=== PATIENT | male | born 1950 | race Caucasian/White ===

== ENCOUNTER 2021-01-17 12:59 | Outpatient (CLI) | payer MEDICARE ==
[2021-01-17 14:01] LABS: Hemoglobin 12.5 g/dL (13.5-17.5); Mean Corpuscular HGB CONC 32.7 g/dL (32.0-36.0); Mean Corpuscular Hemoglobin 28.4 pg (27.0-33.0); Mean Corpuscular Volume 86.8 fl (81.2-95.1); Mean Platelet Volume 10.6 fl (7.4-10.4); Platelet Count 214 10x3/uL (150-450); White Blood Cell (WBC) Count 9.8 10x3/uL (3.5-10.5)
[2021-01-17 14:25] LABS: PTT 24.9 sec (22.0-33.0); Prothrombin Time 10.7 sec (9.5-12.1)
[2021-01-17 14:29] LABS: Anion Gap 18 mmol/L (10-20); BUN (Urea Nitrogen) 46 mg/dL (8.4-25.7); Calc. Creatinine Clearance 0 mL/min (70-130); Calcium 9.6 mg/dL (7.8-10.44); Carbon Dioxide 22 mmol/L (23-31); Chloride 103 mmol/L (98-107); Glucose 115 mg/dL (80-115); Potassium 4.3 mmol/L (3.5-5.1); Sodium 139 mmol/L (136-145)
[2021-01-18 01:20] LABS: SARS-CoV-2 PCR by NAA Not Detected (NotDetected)
== END 2021-01-17 13:00 | disposition home or self-care (01) ==
LOC: LABBT 12:59
PROVIDERS: ATTEND Otolaryngology
DX: Z01.812 Encounter for preprocedural laboratory examination (principal); G95.9 Disease of spinal cord, unspecified; M48.02 Spinal stenosis, cervical region; Z20.822 Contact with and (suspected) exposure to COVID-19
CPT/HCPCS: 80048; 85027; 85610; 85730; U0003; U0005; 87635

== ENCOUNTER 2021-01-20 05:40 | Day surgery (SDC) | payer MEDICARE ==
[2021-01-19 15:35] VITALS: BMI 28.0
[2021-01-20] MEDS ORDERED: Thrombin 5000 UNITS/5 ML VIAL ONE (06:11)
[2021-01-20] MEDS ORDERED: Fentanyl 100 MCG/2 ML VIAL ONE ×4 (06:49→12:23)
[2021-01-20] MEDS ORDERED: HYDROmorphone 0.5 MG/0.5 ML SYRINGE ONE (06:50)
[2021-01-20] MEDS ORDERED: Dexmedetomidine 200 MCG/2 ML VIAL ONE (06:50)
[2021-01-20] MEDS ORDERED: PHENYLEPHRINE-NS 100 MCG/ML 10 ML SYRINGE ONE (07:03)
[2021-01-20] MEDS ORDERED: Glycopyrrolate 0.2 MG/ML 5 ML SYRINGE ONE (07:03)
[2021-01-20] MEDS ORDERED: Ketorolac Tromethamine 30 MG/ML VIAL ONE (07:03)
[2021-01-20] MEDS ORDERED: Ondansetron PF 4 MG/2 ML Vial ONE (07:03)
[2021-01-20] MEDS ORDERED: Lidocaine 1% PF 5 ML VIAL ONE (07:03)
[2021-01-20] MEDS ORDERED: Rocuronium Bromide 10 MG/ML (10ML VIAL) ONE (07:03)
[2021-01-20] MEDS ORDERED: ePHEDrine Sulfate 50 MG/10 ML VIAL ONE (07:03)
[2021-01-20] MEDS ORDERED: PROPOFOL 200 MG/20 ML VIAL ONE (07:03)
[2021-01-20] MEDS ORDERED: Mineral Oil Sterile 10ML 10 ML UDCUP ONE (08:24)
[2021-01-20] MEDS ORDERED: Tamsulosin HCl 0.4 MG CAP ONE (11:17)
[2021-01-20] MEDS ORDERED: tiZANidine HCl 4 MG TAB ONE (11:49)
== END 2021-01-20 14:32 | disposition home or self-care (01) ==
LOC: SDC 05:40
PROVIDERS: ATTEND Neurological Surgery
PROC: 0RG1071 Fusion of Cervical Vertebral Joint with Autologous Tissue Substitute, Posterior Approach, Posterior Column, Open Approach (ICD-10-PCS; principal; 2021-01-20)
DX: M50.01 Cervical disc disorder with myelopathy, high cervical region (principal); M48.02 Spinal stenosis, cervical region; I10 Essential (primary) hypertension; I25.10 Atherosclerotic heart disease of native coronary artery without angina pectoris; E78.5 Hyperlipidemia, unspecified; I25.2 Old myocardial infarction; Z87.891 Personal history of nicotine dependence; Z95.5 Presence of coronary angioplasty implant and graft; E11.9 Type 2 diabetes mellitus without complications; M10.9 Gout, unspecified; Z79.02 Long term (current) use of antithrombotics/antiplatelets; Z79.82 Long term (current) use of aspirin; Z79.84 Long term (current) use of oral hypoglycemic drugs; Z79.899 Other long term (current) drug therapy
CPT/HCPCS: 20930; 20936; 22551; 22552; 22845; 22853 ×2; 76000; C1713 ×3; C1776 ×2; J0690; J1170; J1885; J2405; J2704; J3010; J3490

== ENCOUNTER 2021-02-22 16:58 | Outpatient (CLI) | payer MEDICARE | END 2021-02-22 16:59 | disposition home or self-care (01) | LOC: CT 16:58 | PROVIDERS: ATTEND Thoracic Surgery (Cardiothoracic Vascular Surgery) | DX: I65.22 Occlusion and stenosis of left carotid artery (principal); K04.7 Periapical abscess without sinus; M47.812 Spondylosis without myelopathy or radiculopathy, cervical region; Z98.890 Other specified postprocedural states | CPT/HCPCS: 70490; 82565 ==

== ENCOUNTER 2021-02-28 05:46 | Inpatient (IN) | payer MEDICARE ==
[2021-02-27 12:04] VITALS: BMI 28.0
[2021-02-28] MEDS ORDERED: Midazolam HCl 2 mg/2 ml Vial ONE (06:27)
[2021-02-28] MEDS ORDERED: Fentanyl 100 MCG/2 ML VIAL ONE ×2 (06:27→09:10)
[2021-02-28] MEDS ORDERED: Bupivacaine PF 0.5% 30 ML VIAL ONE (06:35)
[2021-02-28] MEDS ORDERED: EPINEPHrine 1 MG/ML AMP ONE (06:35)
[2021-02-28] MEDS ORDERED: Heparin 5,000 UNITS/ML VIAL ONE (06:35)
[2021-02-28] MEDS ORDERED: Protamine Sulfate 50 MG/5 ML VIAL ONE (06:35)
[2021-02-28] MEDS ORDERED: Dexamethasone 4 mg/ml Vial ONE (06:35)
[2021-02-28 06:56] LABS: Hemoglobin 12.1 g/dL (14.0-18.0); Mean Corpuscular HGB CONC 33.6 g/dL (32.0-36.0); Mean Corpuscular Hemoglobin 28.8 pg (27.0-31.0); Mean Corpuscular Volume 85.9 fL (78.0-98.0); Mean Platelet Volume 8.4 fL (7.4-10.4); Platelet Count 148 thou/uL (130-400); RBC Distribution Width 13.5 % (11.5-14.5); Red Blood Cell (RBC) Count 4.21 mill/uL (4.70-6.10); White Blood Cell (WBC) Count 7.5 thou/uL (4.8-10.8)
[2021-02-28] MEDS ORDERED: Ketorolac Tromethamine 30 MG/ML VIAL ONE (07:23)
[2021-02-28] MEDS ORDERED: Glycopyrrolate 0.2 MG/ML 5 ML SYRINGE ONE (07:23)
[2021-02-28] MEDS ORDERED: Rocuronium Bromide 10 MG/ML (10ML VIAL) ONE (07:23)
[2021-02-28] MEDS ORDERED: Lidocaine 1% PF 5 ML VIAL ONE (07:23)
[2021-02-28] MEDS ORDERED: PHENYLEPHRINE-NS 100 MCG/ML 10 ML SYRINGE ONE (07:23)
[2021-02-28] MEDS ORDERED: Ondansetron PF 4 MG/2 ML Vial ONE (07:23)
[2021-02-28] MEDS ORDERED: PROPOFOL 200 MG/20 ML VIAL ONE (07:23)
[2021-02-28] MEDS ORDERED: Dexamethasone 20 MG/5 ML VIAL ONE (07:23)
[2021-02-28 07:32] LABS: Anion Gap 13 mmol/L (10-20); BUN (Urea Nitrogen) 55 mg/dL (8.4-25.7); Calc. Creatinine Clearance 36 mL/min (70-130); Calcium 9.8 mg/dL (7.8-10.44); Carbon Dioxide 25 mmol/L (23-31); Chloride 107 mmol/L (98-107); Glucose 120 mg/dL (80-115); Sodium 141 mmol/L (136-145)
[2021-02-28] MEDS ORDERED: Ondansetron HCl/PF 4 MG/2 ML Vial IVP PRN (08:59)
[2021-02-28 11:15] VITALS: BP 126/62
[2021-02-28] MEDS ORDERED: OLMESARTAN PO SCH (12:10)
[2021-02-28] MEDS ORDERED: Metoprolol Tartrate 100 MG TAB PO SCH (12:10)
[2021-02-28] MEDS ORDERED: Ondansetron PF 4 MG/2 ML Vial IVP PRN (12:10)
[2021-02-28] MEDS ORDERED: Fentanyl 100 MCG/2 ML VIAL SLOW IVP PRN (12:10)
[2021-02-28] MEDS ORDERED: Insulin Regular 300 UNITS/3 ML VIAL SC PRN (12:10)
[2021-02-28] MEDS ORDERED: HCTHIAZID PO SCH (12:10)
[2021-02-28] MEDS ORDERED: [UNRECOGNIZED DRUG - OTHER] PO SCH (12:10)
[2021-02-28] MEDS ORDERED: Promethazine HCl 25 MG/ML VIAL IM PRN (12:10)
[2021-02-28] MEDS ORDERED: AMLODIPIN PO SCH (12:10)
[2021-02-28] MEDS ORDERED: hydrALAZINE 20 MG/ML VIAL SLOW IVP PRN (12:10)
[2021-02-28] MEDS ORDERED: Acetaminophen 325 MG TAB PO PRN (12:10)
[2021-02-28] MEDS ORDERED: Nitroglycerin 50 MG/250 ML BOT 250 ML IVPB PRN (12:10)
[2021-02-28] MEDS ORDERED: Phenylephrine 40 MG/NS 250 ML 250 ML IVPB PRN (12:36)
[2021-02-28] MEDS: Sodium Chloride 0.9% 1,000 ML IV SCH ×2 (12:41→23:22)
[2021-02-28] MEDS ORDERED: HYDROcodone/Acetaminophen 10/325 mg Tablet PO SCH (15:00)
[2021-02-28] MEDS: CEFAZOLIN 2 GM in Premix Bag 1 BAG IVPB SCH ×2 (15:06→23:21)
[2021-02-28] MEDS: HYDROcodone/Acetaminophen 10/325 mg Tablet PO PRN ×2 (20:33→23:22)
[2021-03-01 07:44] VITALS: TEMP 97.9
[2021-03-01] MEDS: CEFAZOLIN 2 GM in Premix Bag 1 BAG IVPB SCH (07:53)
[2021-03-01] MEDS ORDERED: Losartan 25 MG TAB PO SCH (09:00)
[2021-03-01] MEDS ORDERED: Amlodipine 10 MG TAB PO SCH (09:00)
[2021-03-01] MEDS ORDERED: Furosemide 20 MG TAB PO SCH (09:00)
[2021-03-01] MEDS ORDERED: Fenofibrate Nanocrystallized 145 MG TAB PO SCH (09:00)
[2021-03-01] MEDS ORDERED: Rosuvastatin 20 MG TAB PO SCH (09:00)
[2021-03-01] MEDS ORDERED: Clopidogrel Bisulfate 75 MG TAB PO SCH (09:00)
[2021-03-01] MEDS ORDERED: Hydrochlorothiazide 25 MG TAB PO SCH (09:00)
[2021-03-01] MEDS ORDERED: glipiZIDE 10 MG TAB PO SCH (09:00)
== END 2021-03-01 08:30 | disposition home or self-care (01) | DRG 39 ==
LOC: SURG A 05:46 → CCU 10:29
PROVIDERS: ADMIT Thoracic Surgery (Cardiothoracic Vascular Surgery); ATTEND Thoracic Surgery (Cardiothoracic Vascular Surgery)
PROC: 03CJ0ZZ Extirpation of Matter from Left Common Carotid Artery, Open Approach (ICD-10-PCS; principal; 2021-02-28)
PROC: 03CL0ZZ Extirpation of Matter from Left Internal Carotid Artery, Open Approach (ICD-10-PCS; 2021-02-28)
PROC: 03UJ0KZ Supplement Left Common Carotid Artery with Nonautologous Tissue Substitute, Open Approach (ICD-10-PCS; 2021-02-28)
PROC: 03UL0KZ Supplement Left Internal Carotid Artery with Nonautologous Tissue Substitute, Open Approach (ICD-10-PCS; 2021-02-28)
DX: I65.22 Occlusion and stenosis of left carotid artery (principal); I10 Essential (primary) hypertension; E78.5 Hyperlipidemia, unspecified; M19.90 Unspecified osteoarthritis, unspecified site; E11.9 Type 2 diabetes mellitus without complications; E78.2 Mixed hyperlipidemia; I25.10 Atherosclerotic heart disease of native coronary artery without angina pectoris; Z79.899 Other long term (current) drug therapy; Z79.02 Long term (current) use of antithrombotics/antiplatelets; Z79.84 Long term (current) use of oral hypoglycemic drugs; Z98.1 Arthrodesis status; Z95.5 Presence of coronary angioplasty implant and graft; I25.2 Old myocardial infarction; Z83.3 Family history of diabetes mellitus; Z82.3 Family history of stroke; Z82.49 Family history of ischemic heart disease and other diseases of the circulatory system; Z87.891 Personal history of nicotine dependence
CPT/HCPCS: 36416; 80048; 85027; 94640; J0171; J0690; J1100; J1642; J1644; J1815; J1885; J2250; J2405; J2704; J2720; J3010; J7620; S0020

== ENCOUNTER 2022-09-13 13:50 | Outpatient (CLI) | payer MEDICARE ==
[2022-09-13 14:43] LABS: Hemoglobin 11.5 g/dL (13.5-17.5); Mean Corpuscular HGB CONC 32.4 g/dL (32.0-36.0); Mean Corpuscular Hemoglobin 27.2 pg (27.0-33.0); Mean Corpuscular Volume 83.9 fl (81.2-95.1); Mean Platelet Volume 10.9 fl (7.4-10.4); Platelet Count 182 10x3/uL (150-450); RBC Distribution Width 15.2 % (11.5-14.5); Red Blood Cell (RBC) Count 4.23 10x6/uL (4.32-5.72); White Blood Cell (WBC) Count 7.9 10x3/uL (3.5-10.5)
[2022-09-13 15:01] LABS: PTT 24.5 sec (22.0-33.0); Prothrombin Time 10.8 sec (9.5-12.1)
[2022-09-13 15:05] LABS: Anion Gap 18 mmol/L (10-20); BUN (Urea Nitrogen) 64 mg/dL (8.4-25.7); Calc. Creatinine Clearance 0 mL/min (70-130); Carbon Dioxide 24 mmol/L (23-31); Chloride 105 mmol/L (98-107); Estimated GFR 23; Glucose 257 mg/dL (80-115); Potassium 4.7 mmol/L (3.5-5.1); Sodium 142 mmol/L (136-145)
== END 2022-09-13 13:51 | disposition home or self-care (01) ==
LOC: LABBT 13:50
PROVIDERS: ATTEND Neurological Surgery
DX: Z01.812 Encounter for preprocedural laboratory examination (principal); M43.16 Spondylolisthesis, lumbar region; M48.07 Spinal stenosis, lumbosacral region; M48.57XA Collapsed vertebra, not elsewhere classified, lumbosacral region, initial encounter for fracture
CPT/HCPCS: 80048; 85027; 85610; 85730

== ENCOUNTER 2022-10-24 15:02 | Outpatient (CLI) | payer OTHER ==
[2022-10-24 16:56] LABS: Hemoglobin 13.1 g/dL (13.5-17.5); Mean Corpuscular HGB CONC 32.9 g/dL (32.0-36.0); Mean Corpuscular Hemoglobin 27.8 pg (27.0-33.0); Mean Corpuscular Volume 84.3 fl (81.2-95.1); Mean Platelet Volume 11.2 fl (7.4-10.4); Platelet Count 204 10x3/uL (150-450); RBC Distribution Width 15.4 % (11.5-14.5); Red Blood Cell (RBC) Count 4.72 10x6/uL (4.32-5.72); White Blood Cell (WBC) Count 7.1 10x3/uL (3.5-10.5)
[2022-10-24 17:13] LABS: PTT 24.5 sec (22.0-33.0); Prothrombin Time 10.9 sec (9.5-12.1)
[2022-10-24 17:19] LABS: Anion Gap 17 mmol/L (10-20); BUN (Urea Nitrogen) 76 mg/dL (8.4-25.7); Calc. Creatinine Clearance 0 mL/min (70-130); Calcium 9.6 mg/dL (7.8-10.44); Carbon Dioxide 26 mmol/L (23-31); Chloride 103 mmol/L (98-107); Estimated GFR 22; Glucose 175 mg/dL (80-115); Potassium 4.7 mmol/L (3.5-5.1); Sodium 141 mmol/L (136-145)
== END 2022-10-24 15:03 | disposition home or self-care (01) ==
LOC: LABBT 15:02
PROVIDERS: ATTEND Neurological Surgery
DX: Z01.818 Encounter for other preprocedural examination (principal); M48.061 Spinal stenosis, lumbar region without neurogenic claudication
CPT/HCPCS: 80048; 85027; 85610; 85730; 93005; 93010

== ENCOUNTER 2022-10-29 05:42 | Observation (INO) | payer OTHER ==
[2022-10-26 10:58] VITALS: BMI 28.0
[2022-10-29] MEDS ORDERED: Vancomycin 1 GM VIAL ONE (06:09)
[2022-10-29] MEDS ORDERED: Bupivacaine HCl 0.5%/Epinephrine 1:200,000/PF 30 ml Vial ONE (06:09)
[2022-10-29] MEDS ORDERED: Neomycin-Polymyxin 1 ML AMP ONE ×2 (06:09→09:37)
[2022-10-29] MEDS ORDERED: Thrombin 5000 UNITS/5 ML VIAL ONE (06:09)
[2022-10-29] MEDS ORDERED: diphenhydrAMINE 50 MG/ML VIAL IVP PRN (06:33)
[2022-10-29] MEDS ORDERED: Milk Of Magnesia 30 ML UDCUP PO PRN (06:33)
[2022-10-29] MEDS ORDERED: Mag-Al 1200 mg/1200 mg/30 ML UDCUP PO PRN (06:33)
[2022-10-29] MEDS ORDERED: Bisacodyl 10 MG SUPP PR PRN (06:33)
[2022-10-29] MEDS ORDERED: Acetaminophen 325 MG TAB PO PRN (06:33)
[2022-10-29] MEDS ORDERED: Morphine 2 MG/ML VIAL SLOW IVP PRN (06:33)
[2022-10-29] MEDS ORDERED: Acetaminophen/Codeine 30-300mg Tablet PO PRN (06:33)
[2022-10-29] MEDS ORDERED: HYDROcodone/Acetaminophen 7.5/325 mg Tablet PO PRN (06:33)
[2022-10-29] MEDS ORDERED: Ondansetron PF 4 MG/2 ML Vial IVP PRN (06:33)
[2022-10-29] MEDS ORDERED: Promethazine HCl 25 MG/ML VIAL IM PRN (06:33)
[2022-10-29] MEDS ORDERED: CEFAZOLIN 2 GM VIAL ONE ×3 (06:55→23:02)
[2022-10-29] MEDS ORDERED: Sodium Chloride 0.9% 100 ML ONE ×2 (06:55→23:02)
[2022-10-29] MEDS ORDERED: Dexamethasone 20 MG/5 ML VIAL ONE (07:08)
[2022-10-29] MEDS ORDERED: PROPOFOL 200 MG/20 ML VIAL ONE (07:08)
[2022-10-29] MEDS ORDERED: Esmolol 100 MG/10 ML VIAL ONE (07:08)
[2022-10-29] MEDS ORDERED: Ondansetron PF 4 MG/2 ML Vial ONE (07:08)
[2022-10-29] MEDS ORDERED: ePHEDrine 50 MG/ML VIAL ONE (07:08)
[2022-10-29] MEDS ORDERED: Lidocaine 1% PF 5 ML VIAL ONE (07:08)
[2022-10-29] MEDS ORDERED: NEOSTIGMINE 3 MG/3 ML SYR 3 MG/3 ML SYRINGE ONE (07:08)
[2022-10-29] MEDS ORDERED: Rocuronium Bromide 10 MG/ML (10ML VIAL) ONE (07:08)
[2022-10-29] MEDS ORDERED: Glycopyrrolate 0.2 MG/ML 5 ML SYRINGE ONE (07:08)
[2022-10-29] MEDS ORDERED: HYDROmorphone 2 MG/ML VIAL ONE (07:20)
[2022-10-29] MEDS ORDERED: ePHEDrine Sulfate 50 MG/10 ML VIAL ONE (07:20)
[2022-10-29] MEDS ORDERED: Propofol 500 MG/50 ML VIAL ONE (07:48)
[2022-10-29] MEDS ORDERED: Meperidine HCl/PF 25 MG/ML VIAL SLOW IVP PRN (12:24)
[2022-10-29] MEDS ORDERED: HYDROmorphone 2 MG/ML VIAL SLOW IVP PRN (12:24)
[2022-10-29] MEDS ORDERED: Ondansetron HCl/PF 4 MG/2 ML Vial IVP PRN (12:24)
[2022-10-29] MEDS ORDERED: fentaNYL PF 100 MCG/2 ML SYRINGE ONE (13:25)
[2022-10-29] MEDS ORDERED: CEFAZOLIN 2 GM in Sodium Chloride 0.9% 100 ML IVPB SCH (14:00)
[2022-10-29] MEDS ORDERED: Fentanyl 100 MCG/2 ML VIAL ONE ×2 (14:33→20:13)
[2022-10-29] MEDS: CEFAZOLIN 2 GM in Sodium Chloride 0.9% 100 ML IVPB SCH (15:46)
[2022-10-29] MEDS ORDERED: HYDROmorphone 0.5 MG/0.5 ML SYRINGE ONE ×2 (16:23→17:20)
[2022-10-29] MEDS ORDERED: HYDROcodone/Acetaminophen 10/325 mg Tablet ONE (19:15)
[2022-10-29] MEDS ORDERED: tiZANidine HCl 4 MG TAB ONE (19:16)
[2022-10-29] MEDS ORDERED: Tamsulosin HCl 0.4 MG CAP ONE (19:17)
[2022-10-30] MEDS: Aspirin 81 mg Enteric Coated Tablet PO SCH ×2 (00:29→09:21)
[2022-10-30] MEDS: Sodium Chloride 0.9% 1,000 ML IV SCH ×3 (00:30→09:33)
[2022-10-30] MEDS: CEFAZOLIN 2 GM in Sodium Chloride 0.9% 100 ML IVPB SCH ×2 (00:32→09:20)
[2022-10-30] MEDS ORDERED: tiZANidine HCl 4 MG TAB ONE ×2 (01:16→07:12)
[2022-10-30] MEDS ORDERED: HYDROcodone/Acetaminophen 10/325 mg Tablet ONE ×2 (01:22→07:12)
[2022-10-30] MEDS: HYDROcodone/Acetaminophen 10/325 mg Tablet PO PRN ×2 (01:30→07:15)
[2022-10-30] MEDS: tiZANidine HCl 4 MG TAB PO PRN ×2 (01:32→07:16)
[2022-10-30] MEDS ORDERED: Tamsulosin HCl 0.4 MG CAP ONE (05:10)
[2022-10-30] MEDS ORDERED: Tamsulosin HCl 0.4 MG CAP PO SCH (06:00)
[2022-10-30] MEDS ORDERED: Sodium Chloride 0.9% 100 ML ONE (08:47)
[2022-10-30] MEDS ORDERED: CEFAZOLIN 2 GM VIAL ONE (08:47)
[2022-10-30 11:17] VITALS: BP 104/51; TEMP 97.7
== END 2022-10-30 11:30 | disposition home or self-care (01) ==
LOC: SDC 05:42 → PACU-TCU 06:38
PROVIDERS: ADMIT Neurological Surgery; ATTEND Neurological Surgery
PROC: 01NB0ZZ Release Lumbar Nerve, Open Approach (ICD-10-PCS; principal; 2022-10-29)
PROC: 0SG00AJ Fusion of Lumbar Vertebral Joint with Interbody Fusion Device, Posterior Approach, Anterior Column, Open Approach (ICD-10-PCS; 2022-10-29)
PROC: 0SG30AJ Fusion of Lumbosacral Joint with Interbody Fusion Device, Posterior Approach, Anterior Column, Open Approach (ICD-10-PCS; 2022-10-29)
DX: M48.062 Spinal stenosis, lumbar region with neurogenic claudication (principal); M43.16 Spondylolisthesis, lumbar region; M48.57XA Collapsed vertebra, not elsewhere classified, lumbosacral region, initial encounter for fracture; M19.90 Unspecified osteoarthritis, unspecified site; E78.00 Pure hypercholesterolemia, unspecified; E11.9 Type 2 diabetes mellitus without complications; I11.9 Hypertensive heart disease without heart failure; Z86.73 Personal history of transient ischemic attack (TIA), and cerebral infarction without residual deficits; Z87.891 Personal history of nicotine dependence; Z79.02 Long term (current) use of antithrombotics/antiplatelets; Z79.84 Long term (current) use of oral hypoglycemic drugs; Z79.899 Other long term (current) drug therapy; Z98.1 Arthrodesis status
CPT/HCPCS: 20930; 20936; 22633; 22634; 22842; 22853 ×2; 63047; 63052; 63053; 97116; C1713 ×2; C1768; C1776; C1889 ×2; J1100; J1170; J2405; J2704; J3010; J3370; J3490